=== PATIENT | female | born 1980 | race Caucasian/White ===

== ENCOUNTER → 2017-04-11 | Outpatient (CLI) | payer BC, OTHER ==
[~2017-04-11] MED LIST: PRENTAB26 PO; [UNRECOGNIZED DRUG - OTHER]
[2017-04-11 12:27] LABS: CHOLESTEROL/HDL RATIO 2.8
== END | disposition home or self-care (01) ==
LOC: C.LAB1850 09:54
PROVIDERS: ATTEND Internal Medicine
DX: Z13.220 Encounter for screening for lipoid disorders (principal); Z13.1 Encounter for screening for diabetes mellitus

== ENCOUNTER → 2017-05-13 | Outpatient (CLI) | payer BC ==
--- NOTE | 2017-07-09 05:24 | CODING QUERY MEDICAL NECESSITY ---
CQSUPPORTING DIAGNOSIS NEEDED A supporting diagnosis is required for the test/procedure performed on this patient in order for us to be reimbursed by the patient's insurance. Please provide a supporting diagnosis for the following test/procedure listed below next to the test name along with your signature. *If there is no additional diagnosis for this patient that would support the following test/procedure please document that below next to the test/procedure. Test(s)/Procedure(s) that require a supporting diagnosis: DOS 05/13/17 STOOL CULTURE NO DIAGNOSIS GIVEN FOR TEST TEST ORDERED BY JOSUE MESSINA PA-C Provider Signature: Date: Thank you Elisa Deleon [facility] Once completed, please kindly fax back to [phone] For questions please call [phone]
== END | disposition home or self-care (01) ==
LOC: C.LAB 18:45
PROVIDERS: ATTEND Physician Assistant
DX: R19.7 Diarrhea, unspecified (principal)